=== PATIENT | male | born 1950 | race Caucasian/White ===

== ENCOUNTER → 2016-09-14 | Outpatient (CLI) | payer BC ==
[~2016-09-14] MED LIST: GADOBUTROL 10 MMOL/10 ML VIAL ONE; SIMV20TA3 PO; TAMS0.4C2 PO
== END | disposition home or self-care (01) ==
LOC: CFH 09:05
PROVIDERS: ATTEND Urology
DX: C61 Malignant neoplasm of prostate (principal); R97.20 Elevated prostate specific antigen [PSA]
CPT/HCPCS: 72197; A9585

== ENCOUNTER 2017-01-28 12:53 | Observation (INO) | payer BC ==
[~2017-01-28] VITALS: Ht 190.5 cm; Wt 104.0 kg
[~2017-01-28 12:53] MED LIST changes: -GADOBUTROL 10 MMOL/10 ML VIAL ONE; +HYDR10TA4 PO
[2017-01-28 13:37] VITALS: BP 112/76
[2017-01-28] MEDS ORDERED: LACTATED RINGERS 1,000 ML IV SCH (13:40)
[2017-01-28] MEDS ORDERED: MIDAZOLAM 1 MG/ML, 2ML ONE (14:23)
[2017-01-28] MEDS ORDERED: FENTANYL PF 250 MCG/5ML ONE (14:23)
[2017-01-28] MEDS ORDERED: PROPOFOL 10 MG/ML, 20ML ONE (15:32)
[2017-01-28] MEDS ORDERED: CEFAZOLIN 1,000 MG ONE (15:32)
[2017-01-28] MEDS ORDERED: ROCURONIUM 10 MG/ML,10ML ONE (15:32)
[2017-01-28] MEDS ORDERED: DEXAMETHASONE 4 MG/ML, 1ML ONE ×2 (15:37)
[2017-01-28] MEDS ORDERED: LABETALOL 5MG/ML, 20ML IV PRN (16:00)
[2017-01-28] MEDS ORDERED: ACETAMINOPHEN 325 MG TABLET PO PRN (16:00)
[2017-01-28] MEDS ORDERED: PROMETHAZINE 25 MG/ML, 1ML IV PRN (16:00)
[2017-01-28] MEDS ORDERED: OXYcodone 5 MG/5 ML ORAL.SOL UDC PO PRN (16:00)
[2017-01-28] MEDS ORDERED: MEPERIDINE/PF 25MG/0.5ML IVPush PRN (16:00)
[2017-01-28] MEDS ORDERED: ONDANSETRON 2MG/ML, 2ML IVPush PRN (16:00)
[2017-01-28] MEDS ORDERED: hydrALAzine 20 MG/ML, 1ML IV PRN (16:00)
[2017-01-28] MEDS ORDERED: KETOROLAC 30 MG/1 ML ONE (16:57)
[2017-01-28] MEDS ORDERED: ONDANSETRON 2MG/ML, 2ML ONE ×2 (16:57)
[2017-01-28] MEDS ORDERED: NEOSPORIN OINT, 15GM ONE (17:13)
[2017-01-28] MEDS ORDERED: FENTANYL PF 100 MCG/2ML ONE (17:28)
[2017-01-28] MEDS ORDERED: ACETAMINOPHEN 650 MG/20.3 ML UDC ONE (17:28)
[2017-01-28] MEDS ORDERED: OXYcodone 5 MG/5 ML ORAL.SOL UDC ONE (17:29)
[2017-01-28] MEDS: FENTANYL PF 100 MCG/2ML IV PRN ×2 (17:30→17:45)
[2017-01-28] MEDS ORDERED: OPIUM/BELLADONNA SUPP.RECT 16.2-60 MG ONE (17:51)
[2017-01-28] MEDS: HYDROmorphone 1 MG/ML, 1ML IV PRN ×2 (18:30→18:45)
[2017-01-28] MEDS ORDERED: HYDROmorphone 2 MG/ML, 1ML ONE (18:32)
[2017-01-28] MEDS ORDERED: TEMAZEPAM 30 MG CAPSULE PO PRN (20:00)
[2017-01-28] MEDS ORDERED: OPIUM/BELLADONNA SUPP.RECT 16.2-60 MG PR ONE (20:00)
[2017-01-28] MEDS: CIPROFLOXACIN 500 MG TABLET PO SCH (21:50)
[2017-01-28 23:58] VITALS: BP 107/69
[2017-01-29] MEDS ORDERED: CIPR500T3 PO (02:43)
[2017-01-29] MEDS ORDERED: ONDA4TAB13 SL (02:43)
[2017-01-29] MEDS ORDERED: HYDR-3237 PO (02:44)
[2017-01-29 03:59] VITALS: BP 110/62
[2017-01-29 08:00] VITALS: BP 111/76
[2017-01-29] MEDS: CIPROFLOXACIN 500 MG TABLET PO SCH (09:02)
== END 2017-01-29 13:49 | disposition home or self-care (01) ==
LOC: OUT 12:53 → 4NOR 20:02 → OUT 23:12 → 4NOR 23:13
PROVIDERS: ADMIT Urology; ATTEND Urology
DX: C61 Malignant neoplasm of prostate (principal); R31.0 Gross hematuria
CPT/HCPCS: 55873; C2618; G0378; J0690; J1100; J1170; J1885; J2250; J2405; J2704; J3010; J7120